=== PATIENT | male | born 1965 | race Caucasian/White ===

== ENCOUNTER → 2020-03-21 11:40 | Outpatient (CLI) | payer BC, SELFPAY ==
--- NOTE | ~2020-03-21 | XR_ITS ---
EXAMINATION: XR lumbar spine min 4V, XR sacroiliac joints min 3V DATE: 03/21/2020 13:34 INDICATION: Psoriatic arthropathy. TECHNIQUE: 1. AP, lateral, left and right oblique and coned-down lateral lumbosacral views of the lumbar spine w ere obtained were obtained. 2. AP and left and right oblique views of the sacroiliac joints were obtained. COMPARISON: None. FINDINGS: Transitional thoracolumbar and lumbosacral segments with bilateral hypoplastic riblets at what for pu rposes of this report will be numbered T12, sacralized L5 segment and 4 intervening nonrib-bearing mark mbar segments. 3 mm retrolisthesis L3 on L4 and 3 mm anterolisthesis L4 on L5. Lumbar vertebral body heights are normal. Mild disc height loss at L2-L3 and mild to moderate disc height loss at L4-L5. No pars interarticularis defects. Moderate facet osteoarthritis on the left at L4-L5. Otherwise mild mark mbar facet osteoarthritis. Mild bilateral sacroiliac osteoarthritis. Mild nonuniform joint space narr owing but without erosions or subarticular sclerosis to suggest an inflammatory sacroiliitis. Sacral arches are intact. No fracture. Mild bilateral hip osteoarthritis. IMPRESSION: 1. Mild to moderate lumbar spondylosis. 2. Mild bilateral hip and sacroiliac osteoarthritis. No erosions to suggest an inflammatory arthritis . Reviewed, dictated and finalized at location B. IMPRESSION: 1. Mild to moderate lumbar spondylosis. 2. Mild bilateral hip and sacroiliac osteoarthritis. No erosions to suggest an inflammatory arthritis.
--- NOTE | ~2020-03-21 | XR_ITS ---
EXAMINATION: HAND-PETEY ARTHRITIS 3+VIEWS DATE: 03/21/2020 13:34 INDICATION: Unspecified osteoarthritis. Psoriatic arthropathy. TECHNIQUE: Posteroanterior, lateral, and oblique views of the left and of the right hands as well as a ballcatchers view of both hands were obtained. COMPARISON: None. FINDINGS: Normal alignment at both hands. Suggestion of approximately 3 mm ulnar minus variance at the bilatera l wrists although specificity is decreased on radiographs of the hand as opposed to centered at the w rist. No fracture. Moderate osteoarthritis at the bilateral first carpal metacarpal and left distal r adioulnar joints. Mild osteoarthritis at the right distal radioulnar joint and at the bilateral wrist and multiple bilateral metacarpophalangeal and interphalangeal joints. No erosions to suggest an inf lammatory arthritis. Soft tissue swelling dorsal to the heads of the metacarpals. IMPRESSION: 1. 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 No erosions to suggest an inflammatory arthritis. Reviewed, dictated and finalized at location B. IMPRESSION: 1. 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 No erosions to suggest an inflam matory arthritis.
--- NOTE | ~2020-03-21 | XR_ITS ---
EXAMINATION: XR foot LT standing 2V, XR foot RT standing 2V DATE: 03/21/2020 13:34 INDICATION: Arthropathic psoriasis TECHNIQUE: 1. Standing dorsal plantar and lateral views of the left foot were obtained. 2. Standing dorsal plantar and lateral views of the right foot were obtained. COMPARISON: None. FINDINGS: Alignment is normal at the bilateral feet. No fracture. Moderate to severe osteoarthritis at the left first metatarsophalangeal joint. Mild osteoarthritis at the right first metatarsophalangeal joint. R emaining joint spaces appear relatively preserved. No erosions to suggest an inflammatory arthritis. Small left plantar calcaneal spur. Soft tissues are normal at both feet with no ankle joint effusions . IMPRESSION: 1. Osteoarthritis at the bilateral first metatarsophalangeal joints, mild on the right and moderate t o severe on the left. Reviewed, dictated and finalized at location B. IMPRESSION: 1. Osteoarthritis at the bilateral first metatarsophalangeal joints, mild on th e right and moderate to severe on the left.
== END ==
PROVIDERS: Visit Provider Internal Medicine
DX: L40.50 Arthropathic psoriasis, unspecified (principal); M47.816 Spondylosis without myelopathy or radiculopathy, lumbar region; M16.0 Bilateral primary osteoarthritis of hip; M19.042 Primary osteoarthritis, left hand; M19.041 Primary osteoarthritis, right hand; M19.072 Primary osteoarthritis, left ankle and foot; M19.071 Primary osteoarthritis, right ankle and foot
CPT/HCPCS: 72110; 72202; 73130; 73620

== ENCOUNTER 2023-04-16 11:02 | Outpatient (CLI) | payer MEDICARE, SELFPAY ==
--- NOTE | ~2023-04-16 | XR_ITS ---
EXAMINATION: XR lumbar spine min 4V DATE: 04/16/2023 11:32 INDICATION: Arthropathic psoriasis TECHNIQUE: Anteroposterior, lateral, and bilateral oblique views of the lumbar spine, and cone-down l ateral view of the lumbosacral junction were obtained. COMPARISON: 03/21/2020 FINDINGS: Again noted is a sacralized L5 segment. There are 3 mm of retrolisthesis of L2 on L3, 3 mm of retrolisthesis of L3 on L4, and 2 mm of anterolisthesis of L4 on L5. The lumbar vertebral body hei ghts are maintained. There is no fracture. Small degenerative osteophytes project from the anterior e ndplates of multiple vertebral bodies. There is moderate facet joint osteoarthritis throughout the mark mbar spine. IMPRESSION: 1. Mild to moderate lumbar spondylosis without acute findings or significant interval change. Reviewed, dictated and finalized at location F. [employer] IMPRESSION: 1. Mild to moderate lumbar spondylosis without acute findings or significant in terval change.
--- NOTE | ~2023-04-16 | XR_ITS ---
EXAMINATION: XR sacroiliac joints min 3V INDICATION: Arthropathic psoriasis TECHNIQUE: Three views of the sacroiliac joints are obtained. COMPARISON: 03/21/2020 FINDINGS: Again noted is mild bilateral sacroiliac osteoarthritis. No abnormal erosion or sclerosis a re identified. There is mild osteoarthritis of the hips. There is no fracture. IMPRESSION: 1. Mild osteoarthritis of the sacroiliac joints without acute findings. Reviewed, dictated and finalized at location F. [employer]
== END 2023-04-16 11:03 | disposition home or self-care (01) ==
PROVIDERS: PCP Family Medicine; Visit Provider Internal Medicine
DX: L40.50 Arthropathic psoriasis, unspecified (principal); M47.896 Other spondylosis, lumbar region; M53.3 Sacrococcygeal disorders, not elsewhere classified
CPT/HCPCS: 72110; 72202

== ENCOUNTER 2023-04-30 00:46 | Day surgery (SDC) | payer MEDICARE, SELFPAY ==
[2023-04-17 08:32] VITALS: BMI 28.3
--- NOTE | 2023-04-26 11:12 | SUR.PREOP ---
Patient called regarding upcoming procedure. Reviewed preop instructions, appointment times, and procedure prep.
[2023-04-30 08:41] VITALS: BP 124/84; PULSE 77; RESP 20; TEMP 36.3; O2SAT 100; BMI 28.5
[2023-04-30] MEDS: LACTATED RINGERS 1,000 ML 150 ML IV CONT (08:50)
--- NOTE | 2023-04-30 09:31 | PM.HPGS ---
History of Present Illness History of Present Illness Consent: Risks, benefits, and alternatives have been discussed and questions answered. Patient agrees to proceed with procedure. Chief complaint: family history of colon polyps Narrative: Corby Green is a 58 year old male Presents for screening colonoscopy. Patient's family history is significant that his father had colon polyps. Patient reports that his current weight appetite bowel movements are normal. Patient denies abdominal pain. He has had no bleeding. Previous colonoscopy in 2016 was unremarkable. Review of Systems Review of Systems: Review of systems noncontributory. [facility] Past Medical History Medical History (Updated 04/30/23 @ 09:33 by Matthias Borjas MD) Family history of colon cancer Hip pain Psoriatic arthritis (~2016) Family History Family History Mother Liver cancer Father Carcinoma of colon Social History Social History Smoking status: Never smoker Alcohol intake: current Drinks per week: 8 Substance use: never Substance use type: does not use Living arrangements: with family Occupation/Education: occupation Gender identity (if verbalized by the patient): Male Sexual Orientation (if Verbalized by the Patient): Straight or Heterosexual Spiritual care concerns: No Meds Home Medications and Allergies Home Medications Medication Instructions Recorded Confirmed Type ixekizumab 80 mg/mL subcutaneous 80 mg subcut MONTHLY #1 mL 06/28/22 04/30/23 Rx auto-injector (Taltz Autoinjector) Allergies Allergy/AdvReac Type Severity Reaction Status Date / Time No Known Allergies Allergy Verified 04/30/23 08:40 Vital Signs Vital Signs - 24 hr 04/30/23 08:41 Temperature 97.3 F L Pulse Rate 77 Respiratory Rate 20 Blood Pressure 124/84 Pulse Oximetry 100 Oxygen Delivery Room Air Exam Narrative: Physical exam reveals patient to be alert. Vital signs stable. HEENT exam is unremarkable. Patient is anicteric. Lungs are clear to auscultation and percussion. Heart is without murmur or extra sounds. Abdomen bowel sounds are present soft nontender with no organomegaly. Digital external rectal exam is normal. Assessment and Plan Assessment and plan (1) Family history of colonic polyps: Code(s): Z83.719 - Family history of colon polyps, unspecified Status: Acute Assessment and Plan: Patient's father has had colon polyps. For this reason screening colonoscopy has been advised at 5 year intervals. Further recommendations may be given after endoscopy.
--- NOTE | 2023-04-30 09:49 | P.PNAN_ITS ---
Anes - Initial Pre Proc Eval Procedure: Operation Date: 04/30/23 09:30 Proposed Procedures p Colonoscopy - Matthias Borjas MD Date/Time: 04/30/23 09:49 Surgeon: Matthias Borjas MD Pre Op Diagnosis: family history of colon polyps Patient Data Age: 58 Gender: M Height: 1.85 m Weight: 98.1 kg Last Vital Signs Temp 97.3 F L 04/30/23 08:41 Pulse 77 04/30/23 08:41 Resp 20 04/30/23 08:41 BP 124/84 04/30/23 08:41 Pulse Ox 100 04/30/23 08:41 O2 Del Method Room Air 04/30/23 08:41 Allergies Allergy/AdvReac Type Severity Reaction Status Date / Time No Known Allergies Allergy Verified 04/30/23 08:40 Home Medications Medication Instructions Recorded Confirmed Type ixekizumab 80 mg/mL subcutaneous 80 mg subcut MONTHLY #1 mL 06/28/22 04/30/23 Rx auto-injector (Taltz Autoinjector) Patient hx anesthesia problems: none Family hx anesthesia problems: none Results Review: All pre-operative results and documents have been reviewed as part of the pre- operative evaluation. [facility] Past Medical History Medical History (Updated 04/30/23 @ 09:33 by Matthias Borjas MD) Family history of colon cancer Hip pain Psoriatic arthritis (~2015) Family History Family History Mother Liver cancer Father Carcinoma of colon Social History Social History Smoking status: Never smoker Alcohol intake: current Drinks per week: 8 Substance use: never Substance use type: does not use Living arrangements: with family Occupation/Education: occupation Gender identity (if verbalized by the patient): Male Sexual Orientation (if Verbalized by the Patient): Straight or Heterosexual Spiritual care concerns: No Anes - Eval Final PreProcedure Day of Procedure 04/30/23 09:49 Patient weight: normal Heart: regular rate and rhythm Lungs: clear to auscultation Airway: Mallampati scale class II Neurological: alert and oriented Last oral intake: >/= 8 hours ASA classification: II Emergent: no Anesthetic plan: proceed Anesthesia type and monitoring: general GIVS and standard monitoring Results Review: All pre-operative results and documents have been reviewed as part of the pre- operative evaluation. Informed Consent: The patient's anesthetic plan and its attendant risks and benefits were discussed with the patient/family/POA. Questions were solicited and answers provided to the satisfaction of the patient/family/POA.
[2023-04-30 10:44] VITALS: BP 124/84; PULSE 83; RESP 20; O2SAT 100
[2023-04-30 10:54] VITALS: BP 110/73; PULSE 74; RESP 15; O2SAT 100
[2023-04-30 11:04] VITALS: BP 117/74; PULSE 70; RESP 15; O2SAT 100
== END 2023-04-30 11:12 | disposition home or self-care (01) ==
PROVIDERS: PCP Family Medicine; Visit Provider Internal Medicine Gastroenterology
PROC: 0DJD8ZZ Inspection of Lower Intestinal Tract, Via Natural or Artificial Opening Endoscopic (ICD-10-PCS; CPT 45378; principal; 2023-04-30 09:30)
DX: Z12.11 Encounter for screening for malignant neoplasm of colon (principal); Z83.719 Family history of colon polyps, unspecified; K64.8 Other hemorrhoids
CPT/HCPCS: 45378; J2704; J7120